=== PATIENT | female | born 1985 | race Two or more races ===

== ENCOUNTER 2024-05-08 17:26 | Emergency (ER) | payer OTHER ==
[~2024-05-08] VITALS: Ht 170.2 cm; Wt 90.7 kg
[2024-05-08] MEDS ORDERED: LAMICTAL150 M1 PO (17:45)
[2024-05-08] MEDS ORDERED: NORVASC10 MG PO ×2 (17:45)
[2024-05-08 21:31] LABS: HEMATOCRIT 36.4 % (36.0-45.00); HEMOGLOBIN 11.7 g/dL (12.0-15.00); MEAN CELL VOLUME 77.1 fL (80.00-100.00); MEAN CORPUSCULAR HEMOGLOBIN 24.8 pg (27.00-32.0); MEAN CORPUSCULAR HGB CONC 32.2 g/dl (32.0-36.0); PLATELET COUNT 297 K/uL (150-450); RED BLOOD COUNT 4.72 M/uL (4.00-6.00); RED CELL DISTRIBUTION WIDTH 16.7 % (11.5-14.5)
[2024-05-08 21:51] LABS: ALBUMIN 3.5 gm/dL (3.4-5.0); BILIRUBIN TOTAL 0.28 mg/dL (0.3-1.2); CALCIUM 8.9 mg/dL (8.5-10.1); CREATININE SERUM 0.73 mg/dL (0.55-1.02); GFR 88.75; GLOBULINA 4.3 G/DL (2.4-3.5); POTASSIUM 4.15 mEq/L (3.5-5.1); TOTAL PROTEIN 7.8 gm/dL (6.4-8.2)
[2024-05-08 22:07] LABS: ABG PH 7.416 (7.35-7.45); ABG pCO2 39.8 mmHg (35-45); BASE EXCESS 0.5 mmol/l; SaO2 97.3 %; Tco2 26.2 mmol/l
[2024-05-08 22:35] LABS: o2 21 %
[2024-05-08 22:36] LABS: allen test SATISFACTORY; puncture site RADIAL RIGHT
[2024-05-08] MEDS ORDERED: 0.9 % SODIUM CHLORIDE 500 ML IV ONE (23:30)
== END 2024-05-09 00:39 | disposition home or self-care (01) ==
LOC: ER 17:28
PROVIDERS: Preventive Medicine Public Health & General Preventive Medicine
DX: R51.9 Headache, unspecified (principal); T59.91XA Toxic effect of unspecified gases, fumes and vapors, accidental (unintentional), initial encounter; I10 Essential (primary) hypertension; Z88.0 Allergy status to penicillin
CPT/HCPCS: 36415; 70450; 82803; 96365; 99284; J7042